=== PATIENT | male | born 1950 | race Caucasian/White ===

== ENCOUNTER 2016-07-08 22:46 | Observation (INO) | payer MEDICARE, OTHER ==
[~2016-07-08 22:46] MED LIST: ALPR1TAB3 PO; CALC600T10 PO; DIGO0.25 PO; OMEP40CA2 PO; PRAD150C PO
[2016-07-08 22:49] VITALS: BP 139/92; PULSE 141; RESP 16; TEMP 98; O2SAT 95
[2016-07-08 23:17] VITALS: BP 126/84; PULSE 135; RESP 22; O2SAT 96
[2016-07-09] VITALS (8 sets, daily range): BP systolic 108–113; BP diastolic 62–67; PULSE 70–103; RESP 14–20; O2SAT 95–100
[2016-07-09] MEDS ORDERED: ASPIRIN 81 MG CHEW TAB PO ONE
[2016-07-09] MEDS ORDERED: NITROGLYCERIN 2% OINT 1 GM PACKET TOP ONE
[2016-07-09] MEDS ORDERED: PANTOPRAZOLE SODIUM 40 MG VIAL IV PUSH ONE
[2016-07-09] MEDS ORDERED: SODIUM CHLORID 0.9% 500 ML INJ 500 ML IV ONE
[2016-07-09] MEDS ORDERED: NITROGLYCERIN 0.4 MG SL 25 TABS/BTL SL ONE
--- NOTE | 2016-07-09 00:30 | PD ---
HPI Chief Complaint: Cardiac Complaint Time Seen by Provider: 23:48 Travel History International Travel<30 days: No Contact w/Intl Traveler<30days: No Traveled to known affect area: No History of Present Illness HPI The patient is 66 year old male who presents to the [facility] emergency department with a history of reportedly at approximately 8:30 PM, just after taking his evening medicines, onset of pressure in the midepigastric area with bloating of his abdomen and belching associated with heart palpitations. He reports that he checked his blood pressure and his pulse with his home monitor and his heart rate was in the 140s. He reports that he has a history of atrial fibrillation and became concerned, therefore he came into the emergency department for evaluation and treatment. On arrival to this facility his heart rate was noted to be in the 140s and it appeared to be a junctional rhythm with flutter. The patient reports that he has had some diaphoresis and shortness of breath associated with this. He denies having any chest pain, although the pain in the midepigastric area and radiates into the chest with a pressure sensation. The patient reports that he is on digoxin and Pradaxa the for his atrial fibrillation. The patient denies any recent fevers, cough, congestion, neck pain, vomiting, diarrhea, urinary symptoms, or neurologic symptoms. [facility] Past Medical History Narrative Medical The patient's past medical history is significant for anxiety disorder, atrial fibrillation, hyperlipidemia, history of cerebrovascular accident, history of depression, history of prostate cancer status post radiation therapy 3 months ago. Hx Anticoagulant Therapy: Yes (PRADAXA) Atrial Fibrillation: Yes Anxiety: Yes Depression: Yes Heart Rhythm Problems: Yes (hx afib -used to be on meds) Cardiovascular Problems: No High Cholesterol: Yes Cerebrovascular Accident: Yes Diabetes: No Radiation Therapy: Yes (PROSTATE) Influenza Vaccination: Yes Past Surgical History Narrative Surgical The patient's past surgical history is significant for dental surgery. Oral Surgery: Yes (TOOTH IMPLANTS) Social History Alcohol Use: Yes (OCCASSIONAL) Tobacco Use: Yes (1/2 PPD) Substance Use: No Allergies-Medications (Allergen,Severity, Reaction): Coded Allergies: No Known Allergies (Verified , 07/08/16) Reported Meds & Prescriptions Reported Meds & Active Scripts Active Reported Digoxin 0.25 Mg Tab 0.25 Mg PO DAILY Calcium + D3 (Calcium Carbonate-Cholecalciferol) 600-200 Mg-Unit Tab 1 Tab PO BID Omeprazole 40 Mg Cap 40 Mg PO DAILY Alprazolam 1 Mg Tab 1 Mg PO TID PRN Pradaxa (Dabigatran) 150 Mg Cap 150 Mg PO BID Review of Systems Except as stated in HPI: all other systems reviewed are Neg General / Constitutional: No: Fever Eyes: No: Visual changes HENT: No: Headaches Cardiovascular: Positive: Palpitations, Diaphoresis, No: Chest Pain or Discomfort Respiratory: Positive: Shortness of Breath Gastrointestinal: Positive: Abdominal Pain (abdominal bloating), Indigestion, No: Nausea, Vomiting, Diarrhea, Changes in Bowel Habits, Loss of Appetite Genitourinary: No: Dysuria Musculoskeletal: No: Pain Skin: No Rash Neurologic: No: Weakness Psychiatric: No: Depression Endocrine: No: Polydipsia Hematologic/Lymphatic: No: Easy Bruising Physical Exam Narrative General: The patient is a well-developed well-nourished male in no acute distress. Head and Neck exam: Head is normocephalic atraumatic. Eyes: Pupils are equal round and reactive to light. Nose: Midline septum with pink mucous membranes Mouth: Dentition unremarkable. Moist mucus membranes. Posterior oropharynx is not erythematous. No tonsillar hypertrophy. Uvula midline. Airway patent. Neck: No palpable lymphadenopathy. No nuchal rigidity. No thyromegaly. Cardiovascular: A regular tachycardia is noted on auscultation with a heart rate in the 1 teens to 120s without murmurs, gallops, or rubs. No pulse deficit to the extremities on simultaneous auscultation and palpation of his radial artery. Lungs: Clear to auscultation bilaterally. No wheezes, rhonchi, or rales. Abdomen: Soft, without tenderness to palpation in all 4 quadrants of the abdomen. No guarding, rebound, or rigidity. No tenderness on palpation of McBurney's point. Normal bowel sounds are audible. Extremities: No clubbing, cyanosis, or edema. 2+ pulses in all 4 extremities. No calf tenderness on palpation. Back: No spinous process tenderness to palpation. No costovertebral angle tenderness to palpation. Neurologic Exam: Grossly nonfocal. Skin Exam: No rash noted. Intact skin that is warm and dry. Data Data Last Documented VS Vital Signs Date Time Temp Pulse Resp B/P Pulse Ox O2 Delivery O2 Flow Rate FiO2 07/09/16 01:54 87 16 109/67 96 Room Air 07/09/16 00:02 4 07/08/16 22:49 98.0 Orders Electrocardiogram (07/08/16 22:54) B-Type Natriuretic Peptide (07/08/16 23:48) Ckmb (Isoenzyme) Profile (07/08/16 23:48) Complete Blood Count With Diff (07/08/16 23:48) Comprehensive Metabolic Panel (07/08/16 23:48) Magnesium (Mg) (07/08/16 23:48) Prothrombin Time / Inr (Pt) (07/08/16 23:48) Act Partial Throm Time (Ptt) (07/08/16 23:48) Troponin I (07/08/16 23:48) Lipase (07/08/16 23:48) Chest, Single Ap (07/08/16 23:48) Ecg Monitoring (07/08/16 23:48) Bilateral Bp Monitoring (07/08/16 23:48) Iv Access Insert/Monitor (07/08/16 23:48) Oximetry (07/08/16 23:48) Oxygen Administration (07/08/16 23:48) Aspirin Chew (Aspirin Chew) (07/09/16 00:00) Nitroglycerin 2% Oint (Nitroglycerin 2% (07/09/16 00:00) Sodium Chloride 0.9% Flush (Ns Flush) (07/09/16 00:00) Nitroglycerin Sl (Nitrostat Sl) (07/09/16 00:00) Sodium Chlorid 0.9% 500 Ml Inj (Ns 500 M (07/09/16 00:00) Pantoprazole Inj (Protonix Inj) (07/09/16 00:00) CKMB (07/08/16 23:45) CKMB% (07/08/16 23:45) Admit Order (Ed Use Only) (07/09/16 01:55) Digoxin (07/09/16 01:56) Labs Laboratory Tests Test 07/08/16 23:45 White Blood Count 6.7 TH/MM3 Red Blood Count 5.00 MIL/MM3 Hemoglobin 15.1 GM/DL Hematocrit 43.9 % Mean Corpuscular Volume 87.8 FL Mean Corpuscular Hemoglobin 30.3 PG Mean Corpuscular Hemoglobin 34.5 % Concent Red Cell Distribution Width 13.6 % Platelet Count 182 TH/MM3 Mean Platelet Volume 9.1 FL Neutrophils (%) (Auto) 52.5 % Lymphocytes (%) (Auto) 25.7 % Monocytes (%) (Auto) 10.0 % Eosinophils (%) (Auto) 10.7 % Basophils (%) (Auto) 1.1 % Neutrophils # (Auto) 3.5 TH/MM3 Lymphocytes # (Auto) 1.7 TH/MM3 Monocytes # (Auto) 0.7 TH/MM3 Eosinophils # (Auto) 0.7 TH/MM3 Basophils # (Auto) 0.1 TH/MM3 CBC Comment DIFF FINAL Differential Comment Prothrombin Time 11.6 SEC Prothromb Time International 1.0 RATIO Ratio Activated Partial 39.3 SEC Thromboplast Time Sodium Level 138 MEQ/L Potassium Level 4.7 MEQ/L Chloride Level 104 MEQ/L Carbon Dioxide Level 24.9 MEQ/L Anion Gap 9 MEQ/L Blood Urea Nitrogen 11 MG/DL Creatinine 0.87 MG/DL Estimat Glomerular Filtration 88 ML/MIN Rate Random Glucose 102 MG/DL Calcium Level 8.8 MG/DL Magnesium Level 2.2 MG/DL Total Bilirubin 0.4 MG/DL Aspartate Amino Transf 42 U/L (AST/SGOT) Alanine Aminotransferase 32 U/L (ALT/SGPT) Alkaline Phosphatase 84 U/L Total Creatine Kinase 208 U/L Creatine Kinase MB 1.0 NG/ML Troponin I LESS THAN 0.02 NG/ML B-Type Natriuretic Peptide 29 PG/ML Total Protein 7.1 GM/DL Albumin 3.1 GM/DL Lipase 347 U/L [facility] Medical Decision Making Medical Screen Exam Complete: Yes Emergency Medical Condition: Yes Medical Record Reviewed: Yes Interpretation(s) Last Impressions Chest X-Ray 07/08/16 8483 Signed Impressions: Service Date/Time: Saturday, July 09, 2016 00:26 - CONCLUSION: No acute disease. Sotero Uriostegui Jr., MD Differential Diagnosis Atrial fibrillation with RVR, versus atrial flutter with RVR, versus sinus tachycardia, versus acute coronary syndrome, versus acid reflux, versus acute pancreatitis Narrative Course During the course of the patients emergency department visit, the patients history, examination, and differential diagnosis were reviewed with the patient. The patient had IV access obtained and blood work sent for analysis. The patient was placed on a cardiac rn with oximetry and blood pressure monitoring. An EKG was done on arrival. The patient's EKG shows a right bundle branch block, left axis deviation, heart rate in the 140s there appears to be P waves noted so this is likely a sinus tachycardia. While the patient is being observed in the room after being placed on telemetry the patient's heart rate quickly comes down to the 1 teens to 120s. The patient was reexamined approximately 15 minutes later and his heart rate was down into the 90s. The patient was provided normal saline a 500 mL bolus 1, aspirin 162 mg by mouth 1, nitroglycerin sublingual 1, nitroglycerin 1 inch to the chest wall, Protonix 40 mg IV. The patients laboratory studies were reviewed and remarkable for a CBC that is unremarkable, CMP is remarkable for an AST of 42, initial set of cardiac enzymes are negative, BNP 29, lipase 347, PT PTT unremarkable. Radiology studies were reviewed and remarkable for a chest x-ray that shows no acute abnormality. On reexamination the patient's heart rate was down into the 80s. Repeat EKG was done. The patient is noted to have atrial fibrillation heart rate in the 80s with a right bundle branch block, no other acute ST segment changes. The patient's results were discussed further with him. The patient reports that he has not seen his courtroom reporter in approximately 2 years through the [facility]. He cannot recall ever having a stress test done previously. Given this fact and the fact that the patient came in with diaphoresis, lower chest pressure, shortness of breath, patient was agreeable with the plan to proceed with admission to the chest pain center for rule out serial cardiac enzyme protocol along with follow-up stress testing. The patients results were discussed with the patient, including the plan of care. I explained that further testing and/ or monitoring is indicated based on the patients history, examination, and/ or laboratory findings. Therefore, I recommended admission for additional evaluation. The patient expressed understanding and was agreeable with this plan. The patient was admitted to the hospital in stable condition and sent to a bed under the care of the chest pain center. Diagnosis Primary Impression: Palpitations Additional Impression: Chest pain, rule out acute myocardial infarction Admitting Information Admitting Physician Requests: Damaris Silverio MD Jul 09, 2016 00:30
[2016-07-09 00:34] LABS: AUTOMATED NEUTROPHIL # 3.5 TH/MM3 (1.8-7.7); BASOPHIL # 0.1 TH/MM3 (0-0.2); BASOPHIL % 1.1 % (0.0-2.0); EOSINOPHIL # 0.7 TH/MM3 (0-0.4); EOSINOPHIL % 10.7 % (0.0-4.0); HEMATOCRIT 43.9 % (39.0-51.0); HEMO FLAGS DIFF FINAL; LYMPH % 25.7 % (9.0-44.0); LYMPHOCYTE # 1.7 TH/MM3 (1.0-4.8); MEAN CELL VOLUME 87.8 FL (80.0-100.0); MEAN CORPUSCULAR HEMOGLOBIN 30.3 PG (27.0-34.0); MEAN CORPUSCULAR HGB CONC 34.5 % (32.0-36.0); NEUT % 52.5 % (16.0-70.0); PLATELET COUNT 182 TH/MM3 (150-450); RED CELL DISTRIBUTION WIDTH 13.6 % (11.6-17.2); WHITE BLOOD COUNT 6.7 TH/MM3 (4.0-11.0)
[2016-07-09 00:43] LABS: APTT (PATIENT) 39.3 SEC (24.3-30.1); PROTHROMBIN TIME - PATIENT 11.6 SEC (9.8-11.6)
--- NOTE | 2016-07-09 00:54 | RADRPT ---
EXAM DATE/TIME: 07/09/2016 00:26 [place] COMPARISON: CHEST SINGLE AP, June 17, 2016, 15:50. INDICATIONS : Dizziness. MEDICAL HISTORY : AFIB SURGICAL HISTORY : None. ENCOUNTER: Initial ACUITY: 1 day PAIN SCORE: 0/10 LOCATION: Bilateral chest FINDINGS: A single view of the chest demonstrates the lungs to be symmetrically aerated without evidence of mas s, infiltrate or effusion. The cardiomediastinal contours are unremarkable. Osseous structures are intact. CONCLUSION: No acute disease. Sotero Uriostegui Jr., MD on July 09, 2016 at 0:52 Board Certified Radiologist. This report was verified electronically.
[2016-07-09 01:00] LABS: ALKALINE PHOSPHATASE 84 U/L (45-117); ALT (GPT) 32 U/L (12-78); ANION GAP 9 MEQ/L (5-15); AST (GOT) 42 U/L (15-37); BICARBONATE 24.9 MEQ/L (21.0-32.0); BLOOD UREA NITROGEN 11 MG/DL (7-18); CHLORIDE 104 MEQ/L (98-107); CREATINE KINASE 208 U/L (39-308); GLOMERULAR FILTRATION RATE 88 ML/MIN (>89); MAGNESIUM 2.2 MG/DL (1.5-2.5); SODIUM (NA) 138 MEQ/L (136-145); TOTAL BILIRUBIN ADULT 0.4 MG/DL (0.2-1.0)
[2016-07-09 01:02] LABS: POTASSIUM 4.7 MEQ/L (3.5-5.1)
[2016-07-09] MEDS ORDERED: SODIUM CHLORIDE 0.9% FLUSH 5 ML FLUSH IVF PRN ×2 (05:15)
[2016-07-09] MEDS ORDERED: ACETAMINOPHEN 500 MG CPLT PO PRN (05:15)
[2016-07-09] MEDS ORDERED: NITROGLYCERIN 2% OINT 1 GM PACKET TOP SCH (06:00)
[2016-07-09 06:27] LABS: CREATINE KINASE 112 U/L (39-308)
[2016-07-09 06:41] LABS: CKMB 1.4 NG/ML (0.5-3.6)
--- NOTE | 2016-07-09 08:58 | HHI.DCPOC ---
Discharge Care Plan Diagnosis: (1) Atrial flutter with rapid ventricular response Goals to Promote Your Health * To prevent worsening of your condition and complications * To maintain your health at the optimal level Directions to Meet Your Goals Take your medications as prescribed Follow your dietary instruction Follow activity as directed Keep your appointments as scheduled Take your immunizations and boosters as scheduled If your symptoms worsen call your PCP, if no PCP go to Urgent Care Center or Emergency Room Smoking is Dangerous to Your Health. Avoid second hand smoke Call the 24-hour hour crisis hotline for domestic abuse at Thaddeus Beach Jul 09, 2016 08:58
[2016-07-09] MEDS ORDERED: SODIUM CHLORIDE 0.9% FLUSH 5 ML FLUSH IVF SCH (09:00)
[2016-07-09] MEDS ORDERED: DABIGATRAN ETEXILATE 150 MG CAP PO SCH (09:00)
[2016-07-09] MEDS ORDERED: DIGOXIN 0.25 MG TAB PO SCH (09:00)
[2016-07-09] MEDS ORDERED: METOPROLOL TARTRATE 25 MG TAB PO ONE (09:00)
[2016-07-09] MEDS ORDERED: PANTOPRAZOLE SOD 40 MG DELAYED RELEASE TAB PO SCH ×2 (09:00)
--- NOTE | 2016-07-09 12:40 | MH ---
cc: NAY RIDDLE MD DATE OF ADMISSION: 07/09/2016 DATE OF : 1950 CHIEF COMPLAINT "I think I had another A-fib episode." HISTORY OF PRESENT ILLNESS This is a 66-year-old male with a history of atrial fibrillation and states he had A-fib with RVR onset in 2000, who presents with complaint of feeling as if he had another episode. He felt his heart was beating rapidly and irregularly. He states he takes Pradaxa and digoxin for this. He is currently not followed by a director audience marketing but has seen one in the past. His primary care doctor is through the [facility]. He denies any chest discomfort. He felt a little nauseous yesterday. No diaphoresis or shortness of breath. PAST MEDICAL HISTORY 1. Paroxysmal atrial fibrillation with also atrial fibrillation with RVR. 2. Possible history of TIA. 3. GERD. Denies hypertension, diabetes and known CAD. FAMILY HISTORY Positive for CAD. SOCIAL HISTORY The patient smokes about a half pack of cigarettes daily. Denies illicit drugs. Has occasional alcohol. PAST SURGICAL HISTORY Noncontributory. ALLERGIES No known drug allergies. MEDICATIONS 1. Digoxin. 2. Omeprazole. 3. Xanax. 4. Pradaxa. 5. Calcium. REVIEW OF SYSTEMS GENERAL: Denies fevers or chills. Denies recent illnesses. HEENT: Denies headache, earache, sore throat, difficulty swallowing. CARDIOVASCULAR: Denies chest discomfort. He had sensation of his heart beating rapidly and irregularly, thinking he was back in atrial fibrillation with a fast rate. Denies syncope. Denies diaphoresis. RESPIRATORY: Denies shortness of breath or inspirational chest discomfort. Denies coughing, wheezing or hemoptysis. GASTROINTESTINAL: There was some nausea but denies emesis. Denies abdominal pain. Denies diarrhea, constipation or blood in the stool. MUSCULOSKELETAL: Denies joint pain or edema. Denies calf pain or edema. NEUROVASCULAR: Denies headache or dizziness. ENDOCRINE: Denies polyuria or polydipsia. HEMATOLOGIC: Denies easy bruising. SKIN: Denies rash or itching. PHYSICAL EXAMINATION VITAL SIGNS: The vital signs in the emergency department initially included a blood pressure of 139/92, heart rate 141, respirations 16, pulse oximetry 95% on room air, and he was afebrile. The most recent vital signs include a blood pressure of 113/66, heart rate 70, respirations 14, pulse oximetry 96% on room air. GENERAL: The patient is seen in the examination room in no apparent distress. He is very pleasant. He speaks in clear and complete sentences. HEENT: Atraumatic, normocephalic. NECK: Supple without lymphadenopathy. Trachea is midline. No JVD or carotid bruit. CARDIOVASCULAR: Irregularly irregular rate and rhythm. Rate on exam was in the 70s, with atrial flutter on the monitor at this time. PULMONARY: Lungs clear to auscultation bilaterally. No wheezing, rales or rhonchi. No reproducible chest wall discomfort. No use of accessory muscles. ABDOMEN: Nontender, nondistended. Bowel sounds are normal. No guarding or rebound. No obvious pulsatile mass or bruit. No CVA tenderness. Strong femoral pulses bilaterally. EXTREMITIES: The patient is moving upper and lower extremities freely. No joint tenderness or edema. No calf tenderness or edema. No Homans sign. Strong pulses in the upper and lower extremities. NEUROLOGIC: The patient is alert and oriented. Cranial nerves II through XII are grossly intact. No focal deficits. Speech is clear. SKIN: No rashes. Turgor is normal. LABORATORY DATA CBC is unremarkable. Coagulation studies are unremarkable. Complete metabolic panel has GFR somewhat decreased at 88 and AST is mildly elevated at 42, otherwise unremarkable. Serial cardiac enzymes normal x2. They were essentially six hours apart. BNP is normal at 29. Lipase is normal at 347. Digoxin level is 0.5. IMAGING DATA A single-view chest x-ray read by the radiologist as no acute disease. EKG DATA Initial EKG has atrial flutter with RVR, rate 141, right bundle branch block and some ST changes anteriorly. EKG #2 has atrial flutter, rate of 72, right bundle branch block. EKG #3 has atrial flutter with a heart rate of 80 with a right bundle branch block. ASSESSMENT AND PLAN 1. Atrial flutter with RVR: The patient's rate has essentially improved. This occurred on its own. He had serial cardiac enzymes and EKGs for ruling out purposes. He was seen by Dr. Nay Riddle of cardiology in the chest pain center. He will be placed on metoprolol tartrate 25 mg b.i.d. and he is to continue his other medication. [facility] and advised to follow-up with a director audience marketing at the [facility] as well. 2. The patient is stable at this time. He is agreeable to this plan. Dictated by: Thaddeus Beach PA-C MD CHELLE Escobedo/SUZANNE /11:48 AM /12:38 PM
--- NOTE | 2016-07-09 13:13 | EKG ---
Date Performed: 07/09/2016 Time Performed: 05:55:20 PTAGE: 66 years EKG: ATRIAL FLUTTER RIGHT BUNDLE BRANCH BLOCK ABNORMAL ECG PREVIOUS TRACING : 07/09/2016 01.49 Since previous tracing, a flutter is new DOCTOR: Eduard Riddle Interpretating Date/Time 07/09/2016 13:12:54
--- NOTE | 2016-07-09 13:17 | EKG ---
Date Performed: 07/09/2016 Time Performed: 01:49:34 PTAGE: 66 years EKG: ATRIAL FLUTTER RIGHT BUNDLE BRANCH BLOCK ABNORMAL ECG PREVIOUS TRACING : 07/08/2016 22.56 Since previous tracing, rate has slowed DOCTOR: Eduard Riddle Interpretating Date/Time 07/09/2016 13:15:44
--- NOTE | 2016-07-09 13:18 | EKG ---
Date Performed: 07/08/2016 Time Performed: 22:56:13 PTAGE: 66 years EKG: ATRIAL FLUTTER MARKED LEFT AXIS DEVIATION RIGHT BUNDLE BRANCH BLOCK ST DEPRESSION, CONSIDE R SUBENDOCARDIAL INJURY ABNORMAL ECG PREVIOUS TRACING : 06/17/2016 23.48 ATRIAL FLUTTER IS NEW DOCTOR: Eduard Riddle Interpretating Date/Time 07/09/2016 13:17:08
--- NOTE | 2016-07-09 15:25 | EKG ---
Date Performed: 07/09/2016 Time Performed: 08:26:48 PTAGE: 66 years EKG: ATRIAL FLUTTER/TACHYCARDIA RIGHT BUNDLE BRANCH BLOCK ABNORMAL ECG PREVIOUS TRACING : 07/09/2016 05.55 Since previous tracing, no significant change noted DOCTOR: Eduard Riddle Interpretating Date/Time 07/09/2016 15:25:04
== END 2016-07-09 09:54 | disposition home or self-care (01) ==
LOC: NEPC 22:46 → NEDA 07-09 01:57 → NEDH 07-09 06:56
PROVIDERS: ADMIT Internal Medicine Interventional Cardiology; ATTEND Internal Medicine Interventional Cardiology
DX: R00.2 Palpitations (principal); I48.92 Unspecified atrial flutter; I45.10 Unspecified right bundle-branch block; R07.89 Other chest pain; R14.0 Abdominal distension (gaseous); R14.2 Eructation; R06.02 Shortness of breath; R61 Generalized hyperhidrosis; Z92.3 Personal history of irradiation; Z86.73 Personal history of transient ischemic attack (TIA), and cerebral infarction without residual deficits; Z85.46 Personal history of malignant neoplasm of prostate; E78.5 Hyperlipidemia, unspecified; Z79.01 Long term (current) use of anticoagulants; E78.00 Pure hypercholesterolemia, unspecified; F17.210 Nicotine dependence, cigarettes, uncomplicated; Z79.899 Other long term (current) drug therapy; R11.0 Nausea; K21.9 Gastro-esophageal reflux disease without esophagitis; R94.31 Abnormal electrocardiogram [ECG] [EKG]
CPT/HCPCS: 71010; 80053; 80162; 82550; 82552; 83690; 83735; 83880; 84484; 85025; 85610; 85730; 93005; 96374; 96375; 99285; C9113; G0378; J7040